=== PATIENT | female | born 1990 | race Caucasian/White ===

== ENCOUNTER 2024-03-13 03:16 | Inpatient (IN) | payer BC ==
[2024-03-13 09:09] LABS: Amphetamine Screen,Urine Detected (NotDetected); Barbiturate Screen,Urine Not Detected (NotDetected); Benzodiazepines Screen,Urine Not Detected (NotDetected); Cocaine Screen,Urine Not Detected (NotDetected); Methadone Screen, Urine Not Detected (NotDetected); Opiate Screen,Urine Detected (NotDetected); Oxycodone Screen, Urine Not Detected (NotDetected); Phencyclidine Screen,Urine Not Detected (NotDetected); Tricyclic Antidepressant,Urine Not Detected (NotDetected); Urn Cannabinoid Scrn Not Detected (NotDetected)
[2024-03-13 10:06] LABS: Basophils % (A) 1 %; Eosinophils % (A) 1 %; HCT 43.1 % (34.0-46.0); HGB 14.7 gm/dL (11.4-16.0); Lymphocytes # (A) 1.3 k/uL (1.0-4.8); Lymphocytes % (A) 20 %; MCH 32.1 pg (25.0-35.0); MCV 94.4 fL (80.0-100.0); Mean Platelet Volume 8.8; Monocytes # (A) 0.3 k/uL (0-1.0); Monocytes % (A) 5 %; Neutrophils # (A) 4.5 k/uL (1.3-7.7); Neutrophils % (A) 72 %; Platelet Count 210 k/uL (150-450); RBC 4.57 m/uL (3.80-5.40); RDW 12.6 % (11.5-15.5); WBC 6.3 k/uL (3.8-10.6)
[2024-03-13 10:59] LABS: ALT 20 U/L (4-34); AST 36 U/L (14-36); African American GFR (CKD) >90 (>60 ml/min/1.73 sqM); Albumin 5.2 g/dL (3.5-5.0); Alkaline Phosphatase 44 U/L (38-126); Anion Gap 9 mmol/L; Blood Urea Nitrogen 10 mg/dL (7-17); Calcium 9.4 mg/dL (8.4-10.2); Carbon Dioxide 24 mmol/L (22-30); Chloride 108 mmol/L (98-107); Glucose 83 mg/dL (74-99); Non-African American GFR(CKD) >90 (>60 ml/min/1.73 sqM); Potassium 3.9 mmol/L (3.5-5.1); Salicylate <1.0 mg/dL; Sodium 141 mmol/L (137-145); Total Bilirubin 0.7 mg/dL (0.2-1.3); Total Protein 7.8 g/dL (6.3-8.2)
[2024-03-13 11:00] LABS: Alcohol 81 mg/dL
[2024-03-13] MEDS: LORazepam 1 MG TAB PO STA (14:21)
[2024-03-13] MEDS ORDERED: NON FORMULARY DRUG (Epinephrine (Auto Inject) 0.3 MG/0.3 ML Each) IM PRN (17:35)
[2024-03-13] MEDS: DESVENLAFAXINE SUCCINATE 50 MG TAB.ER.24H PO SCH (18:18)
[2024-03-13] MEDS ORDERED: haloperidoL 5 MG TAB PO PRN (18:35)
[2024-03-13] MEDS ORDERED: IBUPROFEN 600 MG TAB PO PRN (18:35)
[2024-03-13] MEDS ORDERED: MAG HYDROX/AL HYDROX/SIMETH 355 ML BOTTLE PO PRN (18:35)
[2024-03-13] MEDS ORDERED: ACETAMINOPHEN TAB 325 MG TAB PO PRN (18:35)
[2024-03-13] MEDS ORDERED: HALOPERIDOL LACTATE 5 MG/ML 1 ML VIAL IM PRN (18:35)
[2024-03-13] MEDS ORDERED: LORazepam 2 MG/ML INJ IM PRN (18:35)
[2024-03-13] MEDS: traZODone HCL 100 MG TAB PO SCH (20:39)
[2024-03-13] MEDS: LORazepam 1 MG TAB PO PRN (20:40)
--- NOTE | 2024-03-13 23:52 | P.CONS ---
History of Present Illness - Reason for Consult Consult date: 03/13/24 - History of Present Illness The patient is a 33-year-old female with a PMH of alcohol abuse and SVT who presents to the emergency room with complaints of depression and suicidal ideation. The patient reports that she has been suffering due to a poor social situation, currently being [id number] mom to 6 children and has been unable to call. Reports drinking heavily almost daily for the past several months. Currently consuming roughly 6 beers or 3 large mixed drinks with hard liquor daily. She does report a prior history of SVT for which she has stopped taking beta-blockers as the SVT was well-controlled. She does report however that over the past few days she has been experiencing intermittent palpitations which she attributes to her lack of sleep and stress. Denied experiencing chest discomfort, shortness of breath, fever, chills, cough, nausea, vomiting, abdominal pain, diarrhea. Denies illicit substance use. Does report a history of alcohol withdrawal with some hallucinations when she attempted to quit. Review of systems: Pertinent positives and negatives as discussed in HPI, a complete review of systems was performed and all other systems are negative. Physical examination: General: non toxic, no distress, appears at stated age, normal weight Derm: no unusual rashes/lesions, no unusual ecchymoses, warm, dry Head: atraumatic, normocephalic, symmetric Eyes: EOMI, no lid lag, anicteric sclera ENT: Nose and ears atraumatic, no thrush, no pharyngeal erythema Neck: trachea midline, supple Mouth: no lip lesion, mucus membranes moist Cardiovascular: Irregular rate, no murmur, no edema Lungs: CTA bilateral, no rhonchi, no rales , no accessory muscle use Abdominal: soft, nontender to palpation, no guarding Ext: no gross muscle atrophy, no contractures, Neuro: No gross focal neuro deficits noted Psych: Alert, oriented, appropriate affect Assessment: Alcohol abuse, impending withdrawal History of SVT Irregularly irregular rate on cardiac auscultation on physical examination Imaging: None performed Data Review: Reviewed with WBC count 6.3, hemoglobin 14.7, sodium 141, potassium 3.9, chloride 108, albumin 5.2, with urine toxicology positive for amphetamines and opiates. Plan: Advised on the importance of cessation from substance use Ativan as needed Continue with thiamine and multivitamin Obtain EKG Thank you for allowing us to participate in the care of this patient. We will follow peripherally. Do not hesitate to contact us with questions. Someone can be reached from the [facility] hospitalist group at all hours of the day at [phone]. Past Medical History Past Medical History: Asthma, Supraventricular Tachycardia (SVT) History of Any Multi-Drug Resistant Organisms: None Reported Past Surgical History: No Surgical Hx Reported Past Anesthesia/Blood Transfusion Reactions: No Reported Reaction Past Psychological History: Depression Smoking Status: Current every day smoker Past Alcohol Use History: Abuse, Daily Past Drug Use History: None Reported - Past Family History Mother Family Medical History: No Reported History Father Family Medical History: No Reported History Medications and Allergies Home Medications Medication Instructions Recorded Confirmed Type Cetirizine HCl [Zyrtec] 10 mg PO DAILY 03/13/24 03/13/24 History Desvenlafaxine Succinate [Pristiq 50 mg PO DAILY 03/13/24 03/13/24 History ER] EPINEPHrine (Auto Inject) [Epipen] 0.3 mg IM ONCE PRN 03/13/24 03/13/24 History Lisdexamfetamine Dimesylate 50 mg PO DAILY 03/13/24 03/13/24 History [Vyvanse] traZODone HCL 100 mg PO HS 03/13/24 03/13/24 History Allergies Allergy/AdvReac Type Severity Reaction Status Date / Time bee venom protein (honey bee) Allergy Anaphylaxis Verified 03/13/24 13:06 Penicillins Allergy Anaphylaxis Verified 03/13/24 13:06 Sulfa (Sulfonamide Allergy Rash/Hives Verified 03/13/24 13:06 Antibiotics) Physical Exam Vitals: Vital Signs Temp Pulse Pulse Resp BP BP Pulse Ox 03/13/24 20:56 97.9 F 61 18 128/60 98 03/13/24 08:25 97.5 F L 55 L 16 98/67 99 Intake and Output 03/13/24 03/13/24 03/14/24 14:59 22:59 06:59 Other: Weight 51.341 kg Results CBC & Chem 7: 03/13/24 05:11 03/13/24 05:11 Labs: Abnormal Lab Results - Last 24 Hours (Table) 03/13/24 03/13/24 Range/Units 03:20 05:11 Chloride 108 H (98-107) mmol/L Albumin 5.2 H (3.5-5.0) g/dL Urine Opiates Screen Detected H (NotDetected) Ur Amphetamines Screen Detected H (NotDetected)
[2024-03-14] MEDS: NICOTINE 14MG/24HR PATCH TRANSDERM SCH (09:15)
[2024-03-14] MEDS: LORATADINE 10 MG TAB PO SCH (09:15)
[2024-03-14] MEDS: MULTIVITAMINS, THERA 1 EACH TAB PO SCH (09:15)
[2024-03-14] MEDS: THIAMINE 100 MG TAB PO SCH (09:15)
[2024-03-14] MEDS: LISDEXAMFETAMINE DIMESYLATE 50 MG PO SCH (09:16)
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
[2024-03-14] MEDS: LISDEXAMFETAMINE DIMESYLATE 50 MG PO PRN (13:46)
[2024-03-14 13:50] LABS: Basophils % (A) 1 %; Eosinophils # (A) 0.1 k/uL (0-0.7); Eosinophils % (A) 2 %; HCT 40.3 % (34.0-46.0); HGB 13.6 gm/dL (11.4-16.0); Lymphocytes # (A) 1.5 k/uL (1.0-4.8); Lymphocytes % (A) 29 %; MCH 31.8 pg (25.0-35.0); MCHC 33.8 g/dL (31.0-37.0); MCV 94.1 fL (80.0-100.0); Mean Platelet Volume 7.8; Monocytes # (A) 0.3 k/uL (0-1.0); Monocytes % (A) 6 %; Neutrophils # (A) 3.1 k/uL (1.3-7.7); Neutrophils % (A) 61 %; Platelet Count 201 k/uL (150-450); RBC 4.28 m/uL (3.80-5.40); RDW 12.1 % (11.5-15.5); WBC 5.1 k/uL (3.8-10.6)
[2024-03-14 14:01] LABS: ALT 18 U/L (4-34); AST 26 U/L (14-36); African American GFR (CKD) >90 (>60 ml/min/1.73 sqM); Albumin 4.4 g/dL (3.5-5.0); Alkaline Phosphatase 47 U/L (38-126); Anion Gap 5 mmol/L; Blood Urea Nitrogen 12 mg/dL (7-17); Calcium 9.6 mg/dL (8.4-10.2); Carbon Dioxide 25 mmol/L (22-30); Chloride 108 mmol/L (98-107); Glucose 116 mg/dL (74-99); Non-African American GFR(CKD) >90 (>60 ml/min/1.73 sqM); Potassium 4.4 mmol/L (3.5-5.1); Sodium 138 mmol/L (137-145); Total Bilirubin 0.8 mg/dL (0.2-1.3); Total Protein 6.7 g/dL (6.3-8.2)
[2024-03-14] MEDS: MAGNESIUM HYDROXIDE 2,400 MG/30 ML CUP PO PRN (15:46)
[2024-03-14 18:52] LABS: Chol/HDL Ratio 1.99 Ratio; LDL Cholesterol,Calculated 101.8 mg/dL (0.0-131.0); VLDL Calculation 11.22 mg/dL (5.00-40.00)
[2024-03-14] MEDS ORDERED: traZODone HCL 50 MG TAB PO SCH (21:00)
[2024-03-14] MEDS: polyethylene glycoL 3350 17 GM POWD.PACK PO STA (22:11)
[2024-03-14] MEDS: traZODone HCL 100 MG TAB PO SCH (23:21)
[2024-03-15 05:25] VITALS: RESP 18
[2024-03-15] MEDS: DESVENLAFAXINE SUCCINATE 50 MG TAB.ER.24H PO SCH (09:51)
--- NOTE | 2024-03-15 15:15 | P.PN ---
Progress Note - Text Progress Note Date: 03/15/24 Interval history: Patient was seen at the bedside and was open to a visit. She reports having f elt "overwhelmed and needed change" prior to coming into the hospital. She explained that she had been trying to "get help" for quite some time and felt that her request for help for going unheard. She further explains that she "knew it was not going to kill me" when she described the intentional overdose that occurred and prompted her admission. During her visit today she shared the extent to which she has been thinking about the future and wants to be there for her children and family. She finds significant meaning in the roles that she has at home and for others and has found it difficult to cope with being in the hospital and away from though she lives in the activities that keep her busy. She went on to share that she has found alcohol helpful for coping with sad feelings and boredom and this is further made difficult by the fact that she enjoys how it tastes. She does not feel she generally craves alcohol and does not feel that she is focused on drinking for the purpose of feeling blissful or euphoric but she does find herself engaging in behavior to hide her alcohol consumption from others. She also feels guilty about drinking as much as she does because she has shared her desire to quit with her partner who has been supportive of this. She became tearful when talking about missing the first day of school for her children and her desire to leave the hospital and go home. She has a lot of apprehension in general about taking medication and wishes she could function optimally without it. At this time patient denies any suicidal or homicidal ideations intent or plan. Denies any auditory or visual hallucinations. Patient denies any side effects from the medications and has been compliant with meds. Mental status exam: General Appearance: Patient appears to be stated age is alert, directable, and cooperative. Behavior: No agitated behavior. Patient is calm and directable Speech: Patient's speech is fluent and nonpressured. Mood/Affect: Mood is "sad", affect is congruent and constricted, tearful. Suicidality/Homicidality: Patient denies having any suicidal or homicidal ideation intent or plan. Perceptions: Patient denies any auditory or visual hallucinations. Though content/process: There is no evidence of any delusional thought content and thought process is linear and goal-directed. Memory and concentration: AOX3, grossly intact for the purposes of this session Judgment and insight: improving mildly Assessment: - Unspecified mood disorder (consider MDD vs. bipolar depression) - Alcohol use disorder, severe - Relationship discord Plan: Continue with current diagnosis. Patient continues to meet criteria for inpatient psychiatric admission for symptom stabilization and safety. Continue medication regimen: Desvenlafaxine 100 mg daily, Vyvanse 50 mg daily, and Librium for alcohol withdrawal; also on Trazodone 100 mg at bedtime for sleep Monitor for medication compliance and for any psychotropic medication side effects. Will continue to monitor ongoing response to treatment. Encouraged participation in milieu.
[2024-03-15] MEDS: polyethylene glycoL 3350 17 GM POWD.PACK PO STA (22:50)
[2024-03-15] MEDS: bisacodyL 5 MG TABLET.DR PO STA (23:30)
[2024-03-16 12:29] VITALS: BP 108/76; PULSE 76; TEMP 98
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
== END 2024-03-16 15:38 | disposition home or self-care (01) | DRG 881 ==
LOC: EC 03:16 → 3MHU 18:11
PROVIDERS: ADMIT Psychiatry & Neurology Psychiatry; ATTEND Psychiatry & Neurology Psychiatry
DX: F32.9 Major depressive disorder, single episode, unspecified (principal); F10.239 Alcohol dependence with withdrawal, unspecified; R45.851 Suicidal ideations; F90.9 Attention-deficit hyperactivity disorder, unspecified type; F17.210 Nicotine dependence, cigarettes, uncomplicated; F41.9 Anxiety disorder, unspecified; J45.909 Unspecified asthma, uncomplicated; T51.0X1A Toxic effect of ethanol, accidental (unintentional), initial encounter; T40.2X1A Poisoning by other opioids, accidental (unintentional), initial encounter; Z63.0 Problems in relationship with spouse or partner; Z79.899 Other long term (current) drug therapy; Z91.51 Personal history of suicidal behavior; Z56.0 Unemployment, unspecified; Z28.21 Immunization not carried out because of patient refusal; Z71.51 Drug abuse counseling and surveillance of drug abuser; Z88.0 Allergy status to penicillin; Z88.2 Allergy status to sulfonamides
CPT/HCPCS: 36415; 80053; 80061; 80143; 80179; 80306; 80320; 81025; 83036; 84443; 85025; 87635; 93005; 96374; 99285